=== PATIENT | male | born 1985 ===

== ENCOUNTER 2023-03-13 08:35 | Day surgery (SDC) | payer OTHER ==
[~2023-03-13] VITALS: Ht 188 cm; Wt 98.9 kg
[2023-03-13] MEDS ORDERED: PARO10 PO (09:07)
[2023-03-13 12:08] VITALS: BP 130/74
--- NOTE | 2023-03-13 12:11 | NUR ---
03/13/23 1211 PÉREZ STANLEY PT STATED READINESS TO DC. VITAL STABLE AND PT PAIN IS TIGHTNESS ON BOTTOM OF FOOT 03/09
== END 2023-03-13 12:25 | disposition home or self-care (01) ==
LOC: ORSCSDS 08:35
PROVIDERS: Podiatrist Foot & Ankle Surgery
PROC: 0QSN04Z Reposition Right Metatarsal with Internal Fixation Device, Open Approach (ICD-10-PCS; principal; 2023-03-13 10:00)
DX: S92.351A Displaced fracture of fifth metatarsal bone, right foot, initial encounter for closed fracture (principal); X58.XXXA Exposure to other specified factors, initial encounter; Y93.68 Activity, volleyball (beach) (court); Z87.891 Personal history of nicotine dependence
CPT/HCPCS: A9270; C1713; J0171; J0690; J1100; J1885; J2250; J2405; J2704; J2795; J3010; J7120